=== PATIENT | male | born 1940 | race Caucasian/White ===

== ENCOUNTER → 2020-06-07 | Outpatient (CLI) | payer MEDICARE, BC ==
[~2020-06-07] MED LIST: AMLO5 PO; ASPI81CH PO; ENOX40I SC; ERGO400 PO; FISH1000 PO; HYDMOR2 PO; Hair, Skin & N1 EACH PO; Isosorbide Dini30 MG PO; LISI5 PO; METO25 PO; METO50ER PO; Nexium40 MG PO; OXYC10ER PO; OXYC5 PO; PANT40 PO; ROSU5 PO; ST. JOSEPH ASPI81 MG PO; TICA90TA PO; VITAMIN D32000 UNIT PO
== END ==
LOC: LAB SHORT 13:27 → PLD 13:27
DX: L60.2 Onychogryphosis (principal); B35.1 Tinea unguium
CPT/HCPCS: 88305; 88312

== ENCOUNTER 2024-05-04 07:59 | Emergency (ER) | payer MEDICARE, BC ==
[~2024-05-04] VITALS: Ht 175.3 cm; Wt 97.5 kg
[2024-05-04 08:10] VITALS: BP 121/75
== END 2024-05-04 09:13 | disposition home or self-care (01) ==
LOC: ER 07:59
DX: L76.22 Postprocedural hemorrhage of skin and subcutaneous tissue following other procedure (principal); K21.9 Gastro-esophageal reflux disease without esophagitis; G47.33 Obstructive sleep apnea (adult) (pediatric); E78.5 Hyperlipidemia, unspecified; I10 Essential (primary) hypertension; Z79.82 Long term (current) use of aspirin; Z79.899 Other long term (current) drug therapy
CPT/HCPCS: 99282